=== PATIENT | male | born 1970 | race Caucasian/White ===

== ENCOUNTER 2020-08-25 12:31 | Emergency (ER) | payer SELFPAY ==
[2020-08-25] MEDS ORDERED: Ketorolac 30 MG/ML SDV IVPUSH ONE (12:58)
--- NOTE | 2020-08-25 14:19 | CT ---
Abdomen Pelvis wo Cont CLINICAL HISTORY: Right flank pain COMPARISON: None. TECHNIQUE: Axial tomographic images are obtained from the dome of the diaphragm to the pubic symphysis without IV contrast enhancement. No oral contrast was used. The dosage reduction and iterative reconstruction techniques employed. FINDINGS: The lung bases are clear. The liver shows no mass or biliary dilatation. The gallbladder has a normal appearance. The spleen has a normal size and shape. The pancreas shows no mass or inflammatory change. The adrenal glands appear normal bilaterally. The kidneys show no mass, stones or hydronephrosis. There is some increased density in the pericalyceal region. This may represent some tubular ectasia. The aorta has a normal contour. There is no suspicious retroperitoneal adenopathy. Small intestinal configuration is nonacute. There is moderate sigmoid diverticulosis without evidence diverticulitis. Appendix has normal contour There is some soft tissue fullness in the right inguinal canal and some ill-definition of the perianal fat. There is appearance of some rotation of contents within the inguinal canal. There is a right-sided hydrocele and may be some enlargement of the right testicle. IMPRESSION: Soft tissue fullness in the right inguinal canal with suggestion of some inflammatory changes. There is some rotation of the inguinal canal contents. Tortion is not excluded. Incarcerated inguinal hernia is also a consideration. Hydrocele Diverticulosis
--- NOTE | 2020-08-25 14:50 | EDM.PDOC ---
ED HPI GENERAL MEDICAL PROBLEM - General Chief Complaint: Abdominal Pain Stated Complaint: ABD PAIN Time Seen by Provider: 08/25/20 13:00 Source of Information: Reports: Patient History Limitations: Reports: No Limitations - History of Present Illness INITIAL COMMENTS - FREE TEXT/NARRATIVE: 50-year-old male with right lower quadrant and right testicular pain for the past 2 days, worsening and becoming difficult to walk. It started fairly suddenly 2 days ago and is persistent. No fevers or chills, no dysuria. Onset: Sudden (Started fairly suddenly 2 days ago) Location: Reports: Other (Right scrotum, groin and right lower abdomen) Associated Symptoms: Reports: Malaise. Denies: Chest Pain, Fever/Chills, Loss of Appetite, Nausea/Vomiting, Shortness of Breath, Weakness Lower Abdomen Pain Score (Numeric/FACES): 10 - Related Data Allergies Allergy/AdvReac Type Severity Reaction Status Date / Time No Known Allergies Allergy Verified 08/25/20 12:57 Home Meds: Home Meds NK [No Known Home Meds] 08/25/20 [History] Past Medical History - Infectious Disease History Infectious Disease History: Reports: Chicken Pox, Mononucleosis Social & Family History - Tobacco Use Tobacco Use Status *Q: Current Every Day Tobacco User Years of Tobacco use: 25 Packs/Tins Daily: 0.5 - Caffeine Use Caffeine Use: Reports: Coffee, Soda - Recreational Drug Use Recreational Drug Use: Yes Recreational Drug Type: Reports: Marijuana/Hashish ED ROS GENERAL - Review of Systems Review Of Systems: See Below Constitutional: Denies: Fever, Chills Respiratory: Denies: Shortness of Breath Cardiovascular: Denies: Chest Pain GI/Abdominal: Reports: Abdominal Pain (Right lower quadrant only). Denies: Nausea, Vomiting Skin: Reports: No Symptoms Neurological: Reports: No Symptoms Psychiatric: Reports: No Symptoms ED EXAM, GI/ABD - Physical Exam Exam: See Below Exam Limited By: No Limitations General Appearance: Alert, Mild Distress (Fairly uncomfortable) Respiratory/Chest: No Respiratory Distress, Lungs Clear Cardiovascular: Regular Rate, Rhythm GI/Abdominal Exam: Soft, Non-Tender (Male) Exam: Other (Patient has tenderness in the right groin into the right testicle, slight swelling is possible.) Back Exam: No: CVA Tenderness (R), CVA Tenderness (L) Neurological: Alert, Oriented Course - Vital Signs Last Recorded V/S: Last Vital Signs Temp 97.5 F 08/25/20 12:56 Pulse 90 08/25/20 12:56 Resp 20 08/25/20 12:56 BP 148/87 H 08/25/20 12:56 Pulse Ox 100 08/25/20 12:56 - Orders/Labs/Meds Labs: Laboratory Tests 08/25/20 08/25/20 Range/Units 13:23 13:23 WBC 10.2 (4.5-11.0) K/uL RBC 5.29 (4.30-5.90) M/uL Hgb 15.1 H (12.0-15.0) g/dL Hct 43.7 (40.0-54.0) % MCV 83 (80-98) fL MCH 29 (27-31) pg MCHC 35 (32-36) % Plt Count 276 (150-400) K/uL Neut % (Auto) 81 H (36-66) % Lymph % (Auto) 12 L (24-44) % [place] % (Auto) 7 H (2-6) % Eos % (Auto) 1 L (2-4) % Baso % (Auto) 0 (0-1) % Sodium 140 (140-148) mmol/L Potassium 4.3 (3.6-5.2) mmol/L Chloride 103 (100-108) mmol/L Carbon Dioxide 27 (21-32) mmol/L Anion Gap 10.4 (5.0-14.0) mmol/L BUN 13 (7-18) mg/dL Creatinine 1.3 (0.8-1.3) mg/dL Est Cr Clr Drug Dosing 70.79 mL/min Estimated GFR (MDRD) 58 L (>60) Glucose 74 (74-106) mg/dL Calcium 10.4 H (8.5-10.1) mg/dL Meds: Medications Discontinued Medications Generic Name Dose Route Start Last Admin Trade Name Freq PRN Reason Stop Dose Admin Ciprofloxacin 500 mg 08/25/20 15:50 08/25/20 16:03 Ciprofloxacin 500 Mg Tab PO 08/25/20 15:51 500 mg ONETIME ONE Administration Hydromorphone HCl 1 mg 08/25/20 15:33 08/25/20 15:39 Hydromorphone 1 Mg/Ml Syringe IM 08/25/20 15:34 1 mg ONETIME ONE Administration Ceftriaxone Sodium 1 gm/ 50 mls @ 100 mls/hr 08/25/20 15:49 08/25/20 16:02 Sodium Chloride IV 08/25/20 16:18 100 mls/hr ONETIME ONE Administration Ketorolac Tromethamine 30 mg 08/25/20 12:58 08/25/20 13:16 Ketorolac 30 Mg/Ml Sdv IVPUSH 08/25/20 12:59 30 mg ONETIME ONE Administration - Re-Assessments/Exams Free Text/Narrative Re-Assessment/Exam: 08/25/20 14:[address] scan was obtained to rule out nephrolithiasis which confirmed swelling and stranding from the testicle up through the right inguinal canal. An ultrasound of the right testicle was ordered. CBC and BMP was obtained. 08/25/20 16:47 Ultrasound showed good blood flow to both testicles but a very high right testicle and evidence of inflammation and rotation of the spermatic cord. No hernia seen. All the findings were discussed with urology, and recommendations were to treat with antibiotics and anti-inflammatories and observe for 2 hours. If symptoms did not worsen, he can be discharged and return if symptoms do not improve. 08/25/20 16:48 White count and electrolytes were normal, pain was controlled on discharge. Patient was given 500 mg of oral Cipro and 1 g of Rocephin IV, and discharged with 7 days of ciprofloxacin 500 twice daily and Toradol to take once 3 times daily for pain. Recheck in 3 to 4 days if not improving satisfactorily, or return anytime if pain becomes worse for repeat ultrasound and urology consultation. Departure - Departure Time of Disposition: 16:58 Disposition: Home, Self-Care 01 Clinical Impression: Right epididymitis - Discharge Information Instructions: Epididymitis Referrals: PCP,None [Primary Care Provider] - Forms: ED Department Discharge Care Plan Goals: Take antibiotic twice daily for at least 7 days, and use pain medication once every 6 hours as needed. Recheck next week if not improving satisfactorily, or return anytime if worsening with persistent pain despite treatment. Sepsis Event Note (ED) - Evaluation Sepsis Screening Result: No Definite Risk - Focused Exam Vital Signs: Vital Signs Temp Pulse Resp BP Pulse Ox 08/25/20 12:56 97.5 F 90 20 148/87 H 100 08/25/20 12:47 97.5 F 90 20 148/87 H 100
--- NOTE | 2020-08-25 15:27 | US ---
Scrotal Duplex Ltd, Scrotum and Contents CLINICAL HISTORY: Left scrotal pain, abnormal CT FINDINGS: Doppler spectra shows normal flow to both testes. The right testicle measures 4.1 x 2.8 x 3.5 cm. There is normal echotexture. The right epididymis has a normal appearance. There is a right-sided hydrocele. Right testicle appears retracted upward. The left testicle measures 3.7 x 1.9 x 3.1 cm. There is normal echotexture The left epididymis is relative increased blood flow when compared to the right. There is a small hydrocele There are no masses or evidence for varicocele. IMPRESSION: There is relatively normal flow in both testicles. The right testicle is elevated within the scrotum retracted towards the inguinal canal. There is moderate tenderness of the left testicle and spermatic cord. Intermittent torsion is not excluded. Bilateral hydroceles right greater than left
[2020-08-25] MEDS ORDERED: HYDROmorphone 1 MG/ML Syringe IM ONE (15:33)
[2020-08-25] MEDS ORDERED: cefTRIAXone 1 GM in Sodium Chloride 0.9% 50 ML IV ONE (15:49)
[2020-08-25] MEDS ORDERED: Ciprofloxacin 500 MG Tab PO ONE (15:50)
== END 2020-08-25 16:59 | disposition home or self-care (01) ==
LOC: JP.ED 12:31
DX: N45.1 Epididymitis (principal); Z72.0 Tobacco use
CPT/HCPCS: 36415; 74176; 76870; 80048; 85025; 93976; 96365; 96372; 96375; 99283; 99284; A9270; J0696; J1170; J1885

== ENCOUNTER 2020-10-23 12:19 | Emergency (ER) | payer MEDICAID ==
[2020-10-23] MEDS ORDERED: Metoclopramide 10 MG/2 ML SDV IVPUSH ONE (12:43)
[2020-10-23] MEDS ORDERED: Sodium Chloride 0.9% 10 ML Syringe FLUSH PRN (12:43)
[2020-10-23] MEDS ORDERED: HYDROmorphone 0.5 MG/0.5 ML Syringe IVPUSH ONE (12:43)
--- NOTE | 2020-10-23 13:18 | EDM.PDOC ---
ED HPI GENERAL MEDICAL PROBLEM - General Chief Complaint: Abdominal Pain Stated Complaint: SEVERE STOMACH/GROIN PAIN Time Seen by Provider: 10/23/20 12:45 Source of Information: Reports: Patient, RN - History of Present Illness INITIAL COMMENTS - FREE TEXT/NARRATIVE: David is a 50 year old male whom presents to ER for acute onset of right lower abdominal pain. David reports feeling like he may have been constipated last night but took medication resulting in large bowel movement this am. David went to work feeling normal when abruptly at 9 am felt right mid abdominal pain which caused him to vomit and pain to radiate into his groin (testicle). David report history of diverticulitis but pain is normal more gradual at onset and pain with movement. David report feeling like he needs to move for pain to improve, David drove himself to ER for evaluation. Limited additional history due to acute distress secondary to pain. Lower Abdomen Pain Score (Numeric/FACES): 10 - Related Data Allergies Allergy/AdvReac Type Severity Reaction Status Date / Time No Known Allergies Allergy Verified 08/25/20 12:57 Home Meds: Home Meds Hydrocodone/Acetaminophen [Hydrocodon-Acetaminophen 5-325] 1 - 2 each PO Q6H PRN 2 Days #6 tablet 10/23/20 [Rx] Ketorolac [Toradol] 10 mg PO TID PRN 5 Days #15 tab 10/23/20 [Rx] Sulfamethoxazole/Trimethoprim [Bactrim Ds Tablet] 1 each PO BID 5 Days #10 tablet 10/23/20 [Rx] Past Medical History - Infectious Disease History Infectious Disease History: Reports: Chicken Pox, Mononucleosis Social & Family History - Tobacco Use Tobacco Use Status *Q: Former Tobacco User Used Tobacco, but Quit: Yes Month/Year Tobacco Last Used: unknown - Caffeine Use Caffeine Use: Reports: Coffee - Recreational Drug Use Recreational Drug Use: Yes Recreational Drug Type: Reports: Marijuana/Hashish ED ROS GENERAL - Review of Systems Review Of Systems: Comprehensive ROS is negative, except as noted in HPI. Reason Not Obtained: Limited due to acute distress with pain ED EXAM, GI/ABD - Physical Exam Exam: See Below Exam Limited By: No Limitations General Appearance: Alert, WD/WN, No Apparent Distress, Severe Distress (due to right mid and lower abdominal pain ) Ears: Hearing Grossly Normal Nose: Normal Inspection Throat/Mouth: Normal Inspection, Normal Voice, No Airway Compromise Neck: Normal Inspection, Full Range of Motion Respiratory/Chest: No Respiratory Distress, Lungs Clear Cardiovascular: Normal Peripheral Pulses, Regular Rate, Rhythm GI/Abdominal Exam: Normal Bowel Sounds, Soft, Tender (localized right mid abdomen to palpation). No: Distended, Guarding, Rigid, Rebound, Abnormal Bowel Sounds Back Exam: Normal Inspection, Full Range of Motion Extremities: Normal Inspection, Normal Range of Motion Neurological: Alert, Oriented, CN II-XII Intact Psychiatric: Normal Affect, Normal Mood Skin Exam: Warm, Dry, Intact, Normal Color, No Rash, Diaphoretic Course - Vital Signs Last Recorded V/S: Last Vital Signs Temp 36.4 C 10/23/20 12:41 Pulse 78 10/23/20 12:41 Resp 18 10/23/20 12:41 BP 159/104 H 10/23/20 12:41 Pulse Ox 100 10/23/20 12:41 - Orders/Labs/Meds Orders: Active Orders 24 hr Category Date Time Status Peripheral IV Care [RC] . DIRECTED Care 10/23/20 12:43 Active Abdomen Pelvis wo Cont [CT] Stat Exams 10/23/20 12:57 Taken UA W/MICROSCOPIC [URIN] Stat Lab 10/23/20 12:43 Ordered Acetaminophen/HYDROcodone [[place] 325-5 MG] Med 10/23/20 14:40 Once 2 tab PO ONETIME ONE Ketorolac [Toradol] Med 10/23/20 14:40 Once 30 mg IVPUSH ONETIME ONE Sodium Chloride 0.9% [Saline Flush] Med 10/23/20 12:43 Active 10 ml FLUSH ASDIRECTED PRN Peripheral IV Insertion Adult [OM.PC] Urgent Oth 10/23/20 12:42 Ordered Medication Orders Sodium Chloride (Sodium Chloride 0.9% 10 Ml Syringe) 10 ml FLUSH ASDIRECTED PRN PRN Reason: Keep Vein Open Last Admin: 10/23/20 12:53 Dose: 10 ml Documented by: AISHA Labs: Laboratory Tests 10/23/20 10/23/20 Range/Units 12:49 12:49 WBC 12.8 H (4.5-11.0) K/uL RBC 5.18 (4.30-5.90) M/uL Hgb 14.7 (12.0-15.0) g/dL Hct 42.4 (40.0-54.0) % MCV 82 (80-98) fL MCH 28 (27-31) pg MCHC 35 (32-36) % Plt Count 284 (150-400) K/uL Neut % (Auto) 82.5 H (36-66) % Lymph % (Auto) 9.8 L (24-44) % [place] % (Auto) 6.6 H (2-6) % Eos % (Auto) 0.9 L (2-4) % Baso % (Auto) 0.2 (0-1) % Sodium 140 (140-148) mmol/L Potassium 4.9 (3.6-5.2) mmol/L Chloride 104 (100-108) mmol/L Carbon Dioxide 23 (21-32) mmol/L Anion Gap 12.8 (5.0-14.0) mmol/L BUN 17 (7-18) mg/dL Creatinine 1.3 (0.8-1.3) mg/dL Est Cr Clr Drug Dosing 68.35 mL/min Estimated GFR (MDRD) 58 L (>60) Glucose 102 (74-106) mg/dL Calcium 9.4 (8.5-10.1) mg/dL Total Bilirubin 0.4 (0.2-1.0) mg/dL AST 28 (15-37) U/L ALT 32 (12-78) U/L Alkaline Phosphatase 102 (46-116) U/L Total Protein 7.6 (6.4-8.2) g/dL Albumin 3.9 (3.4-5.0) g/dL Globulin 3.7 H (2.3-3.5) g/dL Albumin/Globulin Ratio 1.1 L (1.2-2.2) Meds: Medications Generic Name Dose Route Start Last Admin Trade Name Freq PRN Reason Stop Dose Admin Sodium Chloride 10 ml 10/23/20 12:43 10/23/20 12:53 Sodium Chloride 0.9% 10 Ml Syringe FLUSH 10 ml ASDIRECTED PRN Administration Keep Vein Open Discontinued Medications Generic Name Dose Route Start Last Admin Trade Name Freq PRN Reason Stop Dose Admin Hydromorphone HCl 0.5 mg 10/23/20 12:43 10/23/20 12:55 Hydromorphone 0.5 Mg/0.5 Ml Syringe IVPUSH 10/23/20 12:44 0.5 mg ONETIME ONE Administration Metoclopramide HCl 5 mg 10/23/20 12:43 10/23/20 12:52 Metoclopramide 10 Mg/2 Ml Sdv IVPUSH 10/23/20 12:44 5 mg ONETIME ONE Administration - Re-Assessments/Exams Free Text/Narrative Re-Assessment/Exam: 10/23/20 13:15 Reassessment pain much improved and patient resting comfortable waiting for CT scan. 10/23/20 14:00 Reviewed previous ER visit 2 months ago, which included Scrotal US with normal blood flow and CT results. Urology was consulted regarding findings and recommendations included: Oral antibiotic: Ciprofloxacin, Toradol and pain medications in addition to follow-up with Urology. 10/23/20 14:[address] images with radiologist, whom felt CT findings today is consistent and slightly worsened than images obtained during previous ER visit, August 2020. Discussed CT findings and previous ER visit with patient with repeat recommendations at this time due to increased risk of intermittent testicular torsion, cancer, infection or other concerns which require specialist evaluation. David reports the pain he presents with today occurs every 3 days on average. He did not feel the antibiotic helped and caused some GI concerns. David reports he follow-up with [facility] in [place] unsure if specific ou t reach clinic care obtained. Offered repeat treatment recommendation similar to previous visit. Must follow-up with primary primary care md and urology. David report seeing Urology years ago but not recently (in the last 2 months). Departure - Departure Time of Disposition: 15:07 Disposition: Home, Self-Care 01 Clinical Impression: Bilateral groin pain, Testicular abnormality, Elevated blood pressure reading in office without diagnosis of hypertension - Discharge Information Prescriptions: Sulfamethoxazole/Trimethoprim [Bactrim Ds Tablet] 1 each PO BID 5 Days #10 tablet Hydrocodone/Acetaminophen [Hydrocodon-Acetaminophen 5-325] 1 - 2 each PO Q6H PRN 2 Days #6 tablet PRN Reason: Pain Ketorolac [Toradol] 10 mg PO TID PRN 5 Days #15 tab PRN Reason: Pain Instructions: Hypertension, Adult, Managing Your Hypertension Referrals: PCP,None [Primary Care Provider] - Forms: ED Department Discharge Additional Instructions: 1. Toradol 10mg every 8 hours (TID) x 5 days for moderate to severe pain. 2. [place] (Hydrocodone/Acetaminophen) 5/325 mg 1-2 tablets every 6-8hr as needed for severe pain. 3. Tylenol 500-1000mg every 6-8 hours for mild to moderate pain. 4. Recommended antibiotic at this time, but declined due to minima improvement with treatment 2 months ago. 5. Copy of radiology report handed to patient to take to PCP and Urology for discussion and follow-up. 6. Recommended follow-up with clinician at [facility] regarding blood pressure and groin pain. Urology follow-up as soon as appointment available. Discussed risk of intermittent torsion, testicular cancer or chronic infection (epididymitis) or other urology infection. Sepsis Event Note (ED) - Evaluation Sepsis Screening Result: No Definite Risk - Focused Exam Vital Signs: Vital Signs Temp Pulse Resp BP Pulse Ox 10/23/20 12:41 36.4 C 78 18 159/104 H 100 10/23/20 12:39 36.4 C 78 18 159/104 H 100 - My Orders Last 24 Hours: My Active Orders 10/23/20 12:42 Peripheral IV Insertion Adult [OM.PC] Urgent 10/23/20 12:43 Peripheral IV Care [RC] . DIRECTED UA W/MICROSCOPIC [URIN] Stat Sodium Chloride 0.9% [Saline Flush] 10 ml FLUSH ASDIRECTED PRN 10/23/20 12:57 Abdomen Pelvis wo Cont [CT] Stat 10/23/20 14:40 Acetaminophen/HYDROcodone [[place] 325-5 MG] 2 tab PO ONETIME ONE Ketorolac [Toradol] 30 mg IVPUSH ONETIME ONE - Assessment/Plan Last 24 Hours: My Active Orders 10/23/20 12:42 Peripheral IV Insertion Adult [OM.PC] Urgent 10/23/20 12:43 Peripheral IV Care [RC] . DIRECTED UA W/MICROSCOPIC [URIN] Stat Sodium Chloride 0.9% [Saline Flush] 10 ml FLUSH ASDIRECTED PRN 10/23/20 12:57 Abdomen Pelvis wo Cont [CT] Stat 10/23/20 14:40 Acetaminophen/HYDROcodone [[place] 325-5 MG] 2 tab PO ONETIME ONE Ketorolac [Toradol] 30 mg IVPUSH ONETIME ONE
[2020-10-23] MEDS ORDERED: Acetaminophen/HYDROcodone 325-5 MG Tab PO ONE (14:40)
[2020-10-23] MEDS ORDERED: Ketorolac 30 MG/ML SDV IVPUSH ONE (14:40)
--- NOTE | 2020-10-23 14:44 | CT ---
Abdomen Pelvis wo Cont CLINICAL HISTORY: Abdominal and right groin pain COMPARISON: 08/25/2020. TECHNIQUE: Axial tomographic images are obtained from the dome of the diaphragm to the pubic symphysis without IV contrast enhancement. No oral contrast was used. The dosage reduction and iterative reconstruction techniques employed. FINDINGS: The lung bases are clear. The liver shows no mass or biliary dilatation. The gallbladder has a normal appearance. The spleen has a normal size and shape. The pancreas shows no focal mass. There is some pancreatic ductal dilatation in the pancreatic head region measuring approximately 3 mm. This appears more prominent than on the prior study. The adrenal glands appear normal bilaterally. The kidneys show no mass, stones or hydronephrosis. The aorta has a normal contour. There is no suspicious retroperitoneal adenopathy. The small intestinal configuration is normal. There is persistent soft tissue fullness and some ill-definition and inflammatory change in the fat of the right inguinal canal. There is soft tissue fullness in the lower portion of the canal. The right testicle appears slightly enlarged and low attenuation. There is a right hydrocele. This may have increased slightly since prior study. Some of this difference may be technical. There is diverticulosis without evidence of diverticulitis. The appendix has a normal contour IMPRESSION: Mild nonspecific pancreatic ductal dilatation may be slightly increased since prior study Inflammatory changes and soft tissue fullness in the right inguinal canal. There is some rotation of the spermatic cord. Some element of testicular torsion is not excluded. An underlying mass would be difficult to exclude. There is some soft tissue fullness involving the right testicle and a right hydrocele. This is very similar to the appearance on the August 2020. Patient was seen in the ER in August for similar symptomatology. A urologic consult was recommended but not followed through. Urologic consult is still recommended
== END 2020-10-23 15:28 | disposition home or self-care (01) ==
LOC: JP.ED 12:19
DX: N50.89 Other specified disorders of the male genital organs (principal); Z87.891 Personal history of nicotine dependence; R03.0 Elevated blood-pressure reading, without diagnosis of hypertension
CPT/HCPCS: 36415; 74176; 80053; 85025; 96374; 96375; 99284; A9270; J1170; J1885; J2765; 99283